=== PATIENT | male | born 1955 | race Caucasian/White ===

== ENCOUNTER 2017-11-30 10:58 | Emergency (ER) | payer BC ==
[~2017-11-30] VITALS: Ht 175.3 cm; Wt 110.4 kg
[2017-11-30 11:01] VITALS: TEMP 36.4; Ht 175.3 cm; Wt 110.4 kg
[2017-11-30] MEDS ORDERED: DILT120T8 PO (11:18)
[2017-11-30] MEDS ORDERED: ROSU5TAB PO (11:18)
[2017-11-30] MEDS ORDERED: DICL1TAB5 PO (11:18)
[2017-11-30] MEDS ORDERED: FLEC100T21 PO (11:18)
--- NOTE | 2017-11-30 11:30 | DIAGNOSTIC IMAGING REPORT ---
RIGHT SHOULDER 3 VIEWS HISTORY: Fall on outstretched arm, now R shoulder pain COMPARISON: None. FINDINGS: No fracture or dislocation within the right shoulder. The right clavicle is intact. Moderate AC joint arthrosis. There is also mild osteoarthritis at the glenohumeral joint. Soft tissues are unremarkable. No radiopaque foreign bodies. IMPRESSION: No fracture or dislocation within the right shoulder. Electronically signed by: Benedicto Thakur M.D. 11/30/2017 11:29 AM Dictated Date/Time: 11/30/2017 11:28 AM
--- NOTE | 2017-11-30 11:53 | EMERGENCY ROOM VISIT NOTE ---
History First contact with patient: 11:07 Chief Complaint: SHOULDER PAIN Stated Complaint: SHOULDER PAIN GOING DOWN ARM History of Present Illness The patient is a 62 year old male who presents to the Emergency Room via private vehicle accompanied by female with complaints of "shoulder pain going down arm". The patient states that earlier this morning he was pressure washing his deck, and tripped over the base for an umbrella. He states that caused him to fall with an outstretched hand and now he has pain in the right shoulder. He notes the pain radiates down to his fingertips. He is ambidextrous. He denies any loss of consciousness, or striking his head. There is no chest pain or shortness of breath. He notes he can fully move the arm at the location of the elbow distally, but has difficulty with abduction of the right arm at the shoulder. Review of Systems A complete 6-point Review of Systems was discussed with the patient, with pertinent positives and negatives listed in the History of Present Illness. All remaining Review of Systems questions can be considered negative unless otherwise specified. Past Medical/Surgical History A fib Family History Noncontributory. Social History Smoking Status: Never Smoker Patient lives locally. Current/Historical Medications Scheduled Diclofenac (Voltaren ), 1 TAB PO DAILY Diltiazem Hcl (Cardizem), 120 MG PO DAILY Flecainide (Tambocor), 100 MG PO BID Rosuvastatin Calcium (Crestor), 5 MG PO DAILY Physical Exam Vital Signs Date Time Temp Pulse Resp B/P (MAP) Pulse Ox O2 Delivery O2 Flow Rate FiO2 11/30/17 12:04 94 18 112/82 95 Room Air 11/30/17 11:01 36.4 96 18 115/62 96 Room Air Physical Exam VITAL SIGNS - Vital signs and nursing notes were reviewed. Stable. GENERAL -62-year-old male appearing his stated age who is in no acute distress. Communicates well with provider and answers questions appropriately. SKIN - Without rashes. No petechial rashes. HEAD - NC/AT. EYES - Sclera anicteric. EARS - No deformities of external structures noted on gross examination bilaterally. NOSE - Midline and without cyanosis. No epistaxis or purulent drainage noted. MOUTH/OROPHARYNX - Without perioral cyanosis. NECK -no C-spine tenderness. EXTREMITIES - decreased range of motion of the right shoulder secondary to pain. There is tenderness to palpation overlying the deltoid region of the patient's right shoulder. There is also tenderness in the before meals joint region. He has full range of motion of the arm from the elbow distally. 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 He is neurovascularly intact in this region. +5/5 strength noted in UE/LE bilaterally. Medical Decision & Procedures ER Provider Diagnostic Interpretation: RIGHT SHOULDER 3 VIEWS HISTORY: Fall on outstretched arm, now R shoulder pain COMPARISON: None. FINDINGS: No fracture or dislocation within the right shoulder. The right clavicle is intact. Moderate AC joint arthrosis. There is also mild osteoarthritis at the glenohumeral joint. Soft tissues are unremarkable. No radiopaque foreign bodies. IMPRESSION: No fracture or dislocation within the right shoulder. Electronically signed by: Benedicto Thakur M.D. 11/30/2017 11:29 AM Dictated Date/Time: 11/30/2017 11:28 AM Medical Decision Patient was seen and evaluated as above. He presents to us today with right shoulder pain status post fall. He is well on exam and is hemodynamically stable. Decision was made to obtain radiographs. He declined pain medication and ice packs. He notes that he is very sensitive to pain medication even ibuprofen. There is no fracture or dislocation. I suspect he likely has experienced a rotator cuff injury. He'll be given an arm sling. He is to follow up orthopedics. He is to call them first thing Saturday morning. Again he declined pain medication noting that he is very sensitive to such. He was educated upon management, educated upon worrisome symptoms in which to return, had questions answered prior to discharge, and was discharged home in good condition. In the evaluation and treatment of this patient, the following differential diagnoses were considered: Shoulder Contusion, Shoulder Fracture, Shoulder Dislocation, Thoracic Outlet Syndrome, Adhesive Capsulitis, Rotator Cuff Tear, Proximal Clavicle Head Fracture, Apical Pneumonia, Pneumothorax, Hemothorax, or TB. Impression Primary Impression: Fall Additional Impression: Acute pain of right shoulder Departure Information Dispostion Home / Self-Care Condition GOOD Referrals Brian Anderson (PCP) Bassem Mcdaniel D.O. Patient Instructions My [facility] Additional Instructions You have been treated in the Emergency Department for Shoulder Pain. For pain control, you can use the following [id number] medicines (if no kidney problems): - Regular strength (325mg/tab) Tylenol (acetaminophen) 2 tabs every 6 hours as needed. Do not exceed 12 tablets in a 24 hour period. Avoid taking more than 3 grams (3000 mg) of Tylenol per day. This includes any other sources of acetaminophen you may take on a regular basis. - Regular strength (200 mg/tab) Advil (ibuprofen) 1-2 tabs every 4-6 hours as needed. Do not exceed a dose of 3200 mg per day. (or aspirin, or naproxen) please do not mix these. BUT you may take with tylenol If this is a recent injury (<24 hrs), ice can be applied to the area of pain for the first 3 days to help decrease pain and inflammation. You have been provided the number for an Orthopaedic Surgeon. You should call this number as soon as possible to establish a follow-up visit from today's Emergency Department visit. Keep the shoulder brace/sling in place until evaluated by Orthopedics. Continue to perform range of motion exercises several times per day to help prevent the development of a "frozen shoulder". Return to the Emergency Department if your current symptoms worsen despite treatment course outlined above, or if you develop any of the following symptoms : intractable pain despite aforementioned treatment course or new onset of numbness or tingling of the arm. Problem Qualifiers
[2017-11-30 12:04] VITALS: BP 112/82; PULSE 94; O2SAT 95
== END 2017-11-30 12:12 | disposition home or self-care (01) ==
LOC: C.EDB 11:00 → C.EDD 12:12
DX: M25.511 Pain in right shoulder (principal); Y93.89 Activity, other specified; W18.09XA Striking against other object with subsequent fall, initial encounter; I48.91 Unspecified atrial fibrillation; Z79.899 Other long term (current) drug therapy